=== PATIENT | female | born 1970 | race Two or more races ===

== ENCOUNTER 2023-04-20 13:12 | Inpatient (IN) | payer OTHER ==
[~2023-04-20] VITALS: Ht 154.9 cm; Wt 80.7 kg
[2023-04-20] MEDS ORDERED: FAMOTIDINE (10MG/ML) 2ML VL IV ONE (13:30)
[2023-04-20] MEDS ORDERED: SODIUM CHLORIDE 0.9% 1,000 ML IV ONE (13:30)
[2023-04-20] MEDS ORDERED: METOCLOPRAMIDE HCL 5MG/ml INJ 2ml VIAL IV ONE (13:30)
[2023-04-20] MEDS ORDERED: MORPHINE SULFATE INJ 2 MG/ml SYRG IV ONE (13:30)
[2023-04-20 14:07] LABS: Basophils # (auto) 0 10 ^3/uL (0-0.2); Basophils % (auto) 0.3 % (0.0-2.0); Eosinophils # (auto) 0 10 ^3/uL (0-0.8); Eosinophils % (auto) 0.7 % (0.0-7.0); Hemoglobin 12.8 g/dL (12.2-16.2); Lymphocytes # (auto) 2.3 10 ^3/uL (0.4-5.4); Lymphocytes % (auto) 31.7 % (10.0-50.0); Mean Corpuscular Hemoglobin 27.8 pg (28.0-32.0); Mean Corpuscular Hgb Conc. 32.9 g/dL (32.0-36.0); Mean Corpuscular Volume 84.6 fL (80.0-100.0); Monocytes # (auto) 0.4 10 ^3/uL (0-1.3); Monocytes % (auto) 6.2 % (0.0-12.0); Neutrophils # (auto) 4.3 10 ^3/uL (1.6-8.6); Neutrophils % (auto) 61.1 % (37.0-80.0); Nucleated Red Blood Cells % 0.1 %; Red Blood Cells 4.61 10^6/uL (4.0-5.20); Red Cell Distribution Width 13.6 % (11.8-14.3); White Blood Cell 7.1 10^3/uL (4.4-10.8)
[2023-04-20 14:23] LABS: INR 1.01 (0.9-1.15); Partial Thromboplastin Time 29.3 SEC (24.5-34.5)
[2023-04-20 14:27] LABS: Albumin 3.7 g/dL (3.4-5.0); BUN/Creatinine Ratio 13.4 (10.0-20.0); Calcium 8.8 mg/dL (8.5-10.1); Magnesium 1.9 mg/dL (1.6-2.6); Potassium 4.2 mmol/L (3.5-5.1)
[2023-04-20 14:30] LABS: Bilirubin, Total 0.6 mg/dL (0.2-1.0); Total Protein 6.8 g/dL (6.4-8.2)
[2023-04-20] MEDS ORDERED: InsuLIN REG 1unit/0.01ml Soln (100units/ml) SC ONE (15:00)
[2023-04-20 15:55] VITALS: PULSE 59; RESP 16; O2SAT 92
[2023-04-20 15:55] LABS: Urine Bacteria NONE SEEN /hpf (None Seen); Urine Blood Negative /uL (Negative); Urine Specific Gravity 1.037 (1.001-1.035); Urine WBC <1 /hpf (0 - 5)
[2023-04-20 16:09] LABS: Alcohol, Urine < 3.0 mg/dL (0-10); Amphetamine Screen, Urine NEGATIVE (NEGATIVE); Barbiturate Scree,Urine NEGATIVE (NEGATIVE); Benzodiazephine Screen, Urine NEGATIVE (NEGATIVE); Cannabinoid Screen, Urine NEGATIVE (NEGATIVE); Cocaine Screen, Urine NEGATIVE (NEGATIVE); Opiate Scree,Urine NEGATIVE (NEGATIVE); Phencyclidine Screen, Urine NEGATIVE (NEGATIVE)
[2023-04-20] MEDS ORDERED: DOCUSATE SOD 100 MG CAP PO PRN (18:00)
[2023-04-20] MEDS ORDERED: ONDANSETRON HCL 4 MG/2 ML VIAL IV PRN (18:00)
[2023-04-20] MEDS ORDERED: DEXTROSE (50%) 50ML SYRG IV PRN (18:00)
[2023-04-20] MEDS: SODIUM CHLORIDE 0.9% 1,000 ML IV SCH (18:29)
[2023-04-20 21:05] VITALS: PULSE 65; RESP 9; O2SAT 96
[2023-04-20] MEDS: ACCU-CHEK COMFORT CURVE STRIP VI SCH (22:00)
[2023-04-20 22:08] VITALS: BP 138/80; PULSE 59; RESP 16; TEMP 97.7; O2SAT 99
[2023-04-20] MEDS: SUCRALFATE 1 GM TAB PO SCH (22:56)
[2023-04-20] MEDS: MORPHINE SULFATE INJ 2 MG/ml SYRG IV PRN (22:57)
[2023-04-20] MEDS: InsuLIN REG 1unit/0.01ml Soln (100units/ml) SC SCH (23:11)
[2023-04-20 23:35] VITALS: BP 138/80; PULSE 60; RESP 18; TEMP 97.7; O2SAT 99
[2023-04-21] VITALS (7 sets, daily range): BP systolic 102–131; BP diastolic 40–88; PULSE 58–81; RESP 15–18; TEMP 97.1–98.3; O2SAT 93–98
[2023-04-21] MEDS ORDERED: LOSA50TA46 PO (01:38)
[2023-04-21] MEDS ORDERED: ATO40T PO (01:38)
[2023-04-21] MEDS ORDERED: BUSP5TAB51 PO (01:38)
[2023-04-21] MEDS ORDERED: CETI5TAB6 PO (01:38)
[2023-04-21] MEDS ORDERED: OMEP20TA PO (01:38)
[2023-04-21] MEDS ORDERED: ESCI20TA PO (01:38)
[2023-04-21] MEDS ORDERED: METO25TA5 PO (01:38)
[2023-04-21] MEDS: SODIUM CHLORIDE 0.9% 1,000 ML IV SCH ×3 (02:20→21:47)
[2023-04-21] MEDS: SUCRALFATE 1 GM TAB PO SCH ×4 (06:21→21:46)
[2023-04-21] MEDS: ACCU-CHEK COMFORT CURVE STRIP VI SCH ×4 (06:22→22:03)
[2023-04-21] MEDS: InsuLIN REG 1unit/0.01ml Soln (100units/ml) SC SCH ×4 (06:34→22:01)
[2023-04-21 06:49] LABS: Basophils # (auto) 0 10 ^3/uL (0-0.2); Basophils % (auto) 0.3 % (0.0-2.0); Eosinophils # (auto) 0.2 10 ^3/uL (0-0.8); Eosinophils % (auto) 2.3 % (0.0-7.0); Hematocrit 37.5 % (36.0-46.0); Hemoglobin 12.4 g/dL (12.2-16.2); Lymphocytes # (auto) 2.8 10 ^3/uL (0.4-5.4); Lymphocytes % (auto) 39.8 % (10.0-50.0); Mean Corpuscular Hemoglobin 28.3 pg (28.0-32.0); Mean Corpuscular Hgb Conc. 33.1 g/dL (32.0-36.0); Mean Corpuscular Volume 85.5 fL (80.0-100.0); Monocytes # (auto) 0.5 10 ^3/uL (0-1.3); Monocytes % (auto) 7.7 % (0.0-12.0); Neutrophils # (auto) 3.5 10 ^3/uL (1.6-8.6); Neutrophils % (auto) 49.9 % (37.0-80.0); Nucleated Red Blood Cells % 0.1 %; Red Blood Cells 4.39 10^6/uL (4.0-5.20)
[2023-04-21] MEDS: HYDROcodone-ACET 5/325MG TAB PO PRN (06:49)
[2023-04-21 07:21] LABS: Potassium 3.5 mmol/L (3.5-5.1)
[2023-04-21 07:27] LABS: BUN/Creatinine Ratio 11.3 (10.0-20.0); Bilirubin, Total 0.4 mg/dL (0.2-1.0); Calcium 8.2 mg/dL (8.5-10.1); Total Protein 6.3 g/dL (6.4-8.2)
[2023-04-21] MEDS ORDERED: PNEUMOCOCCAL VACC POLYS 25 MCG/0.5 ML VIAL IM ONE (08:00)
[2023-04-21] MEDS ORDERED: PANTOPRAZOLE 40 MG/10 ML VIAL INJ IV SCH (10:00)
[2023-04-21] MEDS ORDERED: LIDOCAINE VISCOUS 2% 15ML UD ONE (17:55)
[2023-04-21] MEDS ORDERED: MIDAZOLAM HCL 2MG/2ML 2ml VIAL (1mg/ml) ONE (17:55)
[2023-04-21] MEDS ORDERED: fentaNYL CITRATE 100 MCG/2 ML VL ONE (17:56)
[2023-04-21] MEDS: diphenhdrAMINE HCL 50 MG/1 ML VL ONE ×2 (18:17→18:19)
[2023-04-21] MEDS: busPIRone HCL 10 MG TAB PO SCH (21:46)
[2023-04-21] MEDS: ATORVASTATIN 20 MG TAB PO SCH (21:46)
[2023-04-21] MEDS: PANTOPRAZOLE 40 MG/10 ML VIAL INJ IV SCH (21:47)
[2023-04-22] MEDS: SODIUM CHLORIDE 0.9% 1,000 ML IV SCH ×3 (03:20→20:00)
[2023-04-22 05:00] VITALS: BP 135/81; PULSE 61; RESP 18; TEMP 97.9; O2SAT 96
[2023-04-22] MEDS: SUCRALFATE 1 GM TAB PO SCH ×4 (06:17→21:35)
[2023-04-22] MEDS: InsuLIN REG 1unit/0.01ml Soln (100units/ml) SC SCH ×4 (06:39→21:56)
[2023-04-22] MEDS: ACCU-CHEK COMFORT CURVE STRIP VI SCH ×4 (06:40→21:59)
[2023-04-22 08:00] VITALS: BP 130/89; PULSE 79; RESP 16; TEMP 98.1; O2SAT 98
[2023-04-22] MEDS ORDERED: LACTULOSE 20Gm/30ML SOLN PO ONE (08:45)
[2023-04-22] MEDS: PANTOPRAZOLE 40 MG/10 ML VIAL INJ IV SCH ×2 (09:25→21:35)
[2023-04-22] MEDS: HYDROcodone-ACET 5/325MG TAB PO PRN ×2 (09:25→17:27)
[2023-04-22] MEDS: CETIRIZINE 5 MG PO SCH (10:00)
[2023-04-22 12:00] VITALS: BP 135/60; PULSE 68; RESP 18; TEMP 97.6; O2SAT 98
[2023-04-22 16:00] VITALS: BP 119/61; PULSE 66; RESP 16; TEMP 98.4; O2SAT 97
[2023-04-22] MEDS: ATORVASTATIN 20 MG TAB PO SCH (21:35)
[2023-04-22] MEDS: busPIRone HCL 10 MG TAB PO SCH (21:36)
[2023-04-22 22:00] VITALS: BP 144/84; PULSE 55; RESP 18; TEMP 98.3; O2SAT 100
[2023-04-23] MEDS: HYDROcodone-ACET 5/325MG TAB PO PRN ×3 (03:30→21:02)
[2023-04-23] MEDS: MORPHINE SULFATE INJ 2 MG/ml SYRG IV PRN ×2 (04:32→09:45)
[2023-04-23] MEDS: SODIUM CHLORIDE 0.9% 1,000 ML IV SCH ×3 (04:39→21:00)
[2023-04-23 05:00] VITALS: BP 137/97; PULSE 90; RESP 19; TEMP 97.9; O2SAT 100
[2023-04-23] MEDS: SUCRALFATE 1 GM TAB PO SCH ×4 (06:29→21:51)
[2023-04-23] MEDS: ACCU-CHEK COMFORT CURVE STRIP VI SCH ×4 (06:37→22:00)
[2023-04-23] MEDS: InsuLIN REG 1unit/0.01ml Soln (100units/ml) SC SCH ×4 (06:37→22:28)
[2023-04-23 09:00] VITALS: BP 131/77; PULSE 59; RESP 19; TEMP 98.1; O2SAT 99
[2023-04-23] MEDS: CETIRIZINE 5 MG PO SCH (09:44)
[2023-04-23] MEDS: PANTOPRAZOLE 40 MG/10 ML VIAL INJ IV SCH ×2 (09:44→21:51)
[2023-04-23] MEDS ORDERED: diphenhdrAMINE HCL 25 MG CAP PO ONE (11:15)
[2023-04-23 13:00] VITALS: BP 152/88; PULSE 56; RESP 20; TEMP 98.9; O2SAT 99
[2023-04-23] MEDS ORDERED: LOSARTAN POTASSIUM 50 MG TAB PO ONE (13:30)
[2023-04-23] MEDS ORDERED: FAMO-12 PO (15:46)
[2023-04-23] MEDS ORDERED: BUSP5TAB51 PO (15:46)
[2023-04-23] MEDS ORDERED: OMEP20TA PO (15:46)
[2023-04-23] MEDS ORDERED: HYDRX10T PO (15:46)
[2023-04-23] MEDS ORDERED: TRAZ-184 PO (15:46)
[2023-04-23 17:00] VITALS: BP 113/59; PULSE 62; RESP 16; TEMP 97.5; O2SAT 96
[2023-04-23] MEDS: ATORVASTATIN 20 MG TAB PO SCH (21:51)
[2023-04-23] MEDS: busPIRone HCL 10 MG TAB PO SCH (21:51)
[2023-04-23] MEDS: METOPROLOL TARTRATE 25 MG TAB PO SCH (21:52)
[2023-04-23 22:00] VITALS: BP 158/78; PULSE 55; RESP 20; TEMP 98.3; O2SAT 99
[2023-04-23 23:20] VITALS: BP 132/78
[2023-04-24] MEDS: SODIUM CHLORIDE 0.9% 1,000 ML IV SCH ×3 (05:20→21:57)
[2023-04-24 06:13] LABS: Potassium 4.1 mmol/L (3.5-5.1)
[2023-04-24 06:21] LABS: Albumin 3.2 g/dL (3.4-5.0); BUN/Creatinine Ratio 4.8 (10.0-20.0); Bilirubin, Total 2.1 mg/dL (0.2-1.0); Calcium 8.9 mg/dL (8.5-10.1); Total Protein 6.7 g/dL (6.4-8.2)
[2023-04-24] MEDS: InsuLIN REG 1unit/0.01ml Soln (100units/ml) SC SCH ×4 (06:26→22:07)
[2023-04-24] MEDS: SUCRALFATE 1 GM TAB PO SCH ×4 (06:27→21:54)
[2023-04-24] MEDS: ACCU-CHEK COMFORT CURVE STRIP VI SCH ×4 (06:27→22:01)
[2023-04-24 06:33] VITALS: BP 137/71; PULSE 55; RESP 18; TEMP 98.1; O2SAT 98
[2023-04-24 08:00] VITALS: BP 143/86; PULSE 56; RESP 16; TEMP 97.9; O2SAT 98
[2023-04-24] MEDS: CETIRIZINE 5 MG PO SCH (10:00)
[2023-04-24] MEDS: METOPROLOL TARTRATE 25 MG TAB PO SCH ×2 (10:00→21:57)
[2023-04-24] MEDS: LOSARTAN POTASSIUM 50 MG TAB PO SCH (11:16)
[2023-04-24] MEDS: PANTOPRAZOLE 40 MG TAB PO SCH ×2 (11:17→21:54)
[2023-04-24 12:00] VITALS: BP 141/74; PULSE 59; RESP 16; TEMP 98; O2SAT 98
[2023-04-24] MEDS: HYDROcodone-ACET 5/325MG TAB PO PRN ×2 (12:58→21:54)
[2023-04-24] MEDS: LORazepam 0.5 MG TAB PO PRN ×2 (14:45→23:15)
[2023-04-24 16:00] VITALS: BP 159/85; PULSE 59; RESP 18; TEMP 98.7; O2SAT 99
[2023-04-24 20:00] VITALS: PULSE 57; RESP 18; O2SAT 96
[2023-04-24] MEDS: busPIRone HCL 10 MG TAB PO SCH (21:54)
[2023-04-24] MEDS: ATORVASTATIN 20 MG TAB PO SCH (21:54)
[2023-04-24 21:59] VITALS: BP 132/89; PULSE 57; RESP 18; TEMP 97.8; O2SAT 96
[2023-04-25 05:00] VITALS: BP 131/80; PULSE 80; RESP 20; TEMP 97.7; O2SAT 99
[2023-04-25] MEDS: ACCU-CHEK COMFORT CURVE STRIP VI SCH ×2 (06:03→11:25)
[2023-04-25] MEDS: SUCRALFATE 1 GM TAB PO SCH ×2 (06:03→11:13)
[2023-04-25] MEDS: InsuLIN REG 1unit/0.01ml Soln (100units/ml) SC SCH ×2 (06:04→11:28)
[2023-04-25] MEDS: SODIUM CHLORIDE 0.9% 1,000 ML IV SCH (06:09)
[2023-04-25] MEDS: HYDROcodone-ACET 5/325MG TAB PO PRN (06:14)
[2023-04-25 08:00] VITALS: PULSE 68; RESP 18
[2023-04-25] MEDS ORDERED: SUCR1TAB22 PO (08:20)
[2023-04-25] MEDS ORDERED: PANT40T PO (08:20)
[2023-04-25] MEDS ORDERED: METF-372 PO (08:20)
[2023-04-25 09:27] VITALS: BP 149/94; PULSE 65; RESP 16; TEMP 98.3; O2SAT 98
[2023-04-25] MEDS: CETIRIZINE 5 MG PO SCH (10:00)
[2023-04-25] MEDS: METOPROLOL TARTRATE 25 MG TAB PO SCH (10:34)
[2023-04-25] MEDS: LOSARTAN POTASSIUM 50 MG TAB PO SCH (10:34)
[2023-04-25] MEDS: PANTOPRAZOLE 40 MG TAB PO SCH (10:34)
[2023-04-25 12:56] VITALS: BP 149/94; PULSE 76; RESP 18; TEMP 36.8; O2SAT 98
[2023-04-25 13:08] VITALS: BP 120/71; PULSE 68; RESP 15; TEMP 97.9; O2SAT 98
== END 2023-04-25 14:00 | disposition home or self-care (01) | DRG 241 ==
LOC: ER 13:12 → EDBD 13:12 → OVERFLOW 17:57 → CENTRAL 22:08
PROVIDERS: ADMIT Family Medicine; ATTEND Family Medicine
PROC: 0DB68ZX Excision of Stomach, Via Natural or Artificial Opening Endoscopic, Diagnostic (ICD-10-PCS; 2023-04-21)
PROC: 0DB98ZX Excision of Duodenum, Via Natural or Artificial Opening Endoscopic, Diagnostic (ICD-10-PCS; principal; 2023-04-21 18:11)
DX: K29.00 Acute gastritis without bleeding (principal); E11.43 Type 2 diabetes mellitus with diabetic autonomic (poly)neuropathy; E87.1 Hypo-osmolality and hyponatremia; K31.84 Gastroparesis; S09.90XA Unspecified injury of head, initial encounter; E86.0 Dehydration; F32.9 Major depressive disorder, single episode, unspecified; W18.39XA Other fall on same level, initial encounter; F41.9 Anxiety disorder, unspecified; Z90.710 Acquired absence of both cervix and uterus; Z82.3 Family history of stroke; Z82.49 Family history of ischemic heart disease and other diseases of the circulatory system; Y93.89 Activity, other specified; Y92.89 Other specified places as the place of occurrence of the external cause; Y99.8 Other external cause status; Z23 Encounter for immunization; R10.13 Epigastric pain
CPT/HCPCS: 36415; 43239; 70450; 72125; 74176; 76705; 78226; 80053; 80307; 81001; 82962; 83036; 83605; 83690; 83735; 84484; 85025; 85610; 85730; 86677; 87040; 93005; 96361; 96372; 96374; 96375; C9113; G0378; J1815; J2250; J3490

== ENCOUNTER → 2024-01-24 | Outpatient (CLI) | payer MEDICAID ==
[~2024-01-24] MED LIST: ATOR-507 PO; BUSP5TAB51 PO; CETI5TAB6 PO; ESCI20TA PO; FAMO-12 PO; HYDRX10T PO; LOSA-534 PO; METF-372 PO; METO25TA5 PO; OMEP20TA PO; PANT40T PO; SUCR1TAB31 PO; TRAZ-184 PO
== END | disposition home or self-care (01) ==
LOC: Rad HDHVI 08:08
PROVIDERS: ATTEND Internal Medicine Cardiovascular Disease
DX: I10 Essential (primary) hypertension (principal)
CPT/HCPCS: 93306

== ENCOUNTER 2024-03-01 08:16 | Day surgery (SDC) | payer MEDICAID ==
[2024-02-23 12:16] LABS: Basophils # (auto) 0 10 ^3/uL (0-0.2); Basophils % (auto) 0.4 % (0.0-2.0); Eosinophils # (auto) 0.3 10 ^3/uL (0-0.8); Eosinophils % (auto) 3.5 % (0.0-7.0); Hematocrit 38.3 % (36.0-46.0); Hemoglobin 12.5 g/dL (12.2-16.2); Lymphocytes # (auto) 3.9 10 ^3/uL (0.4-5.4); Lymphocytes % (auto) 50.7 % (10.0-50.0); Mean Corpuscular Hgb Conc. 32.6 g/dL (32.0-36.0); Mean Corpuscular Volume 86.1 fL (80.0-100.0); Monocytes # (auto) 0.5 10 ^3/uL (0-1.3); Monocytes % (auto) 6.7 % (0.0-12.0); Neutrophils % (auto) 38.7 % (37.0-80.0); Red Blood Cells 4.45 10^6/uL (4.0-5.20); Red Cell Distribution Width 14.4 % (11.8-14.3); White Blood Cell 7.7 10^3/uL (4.4-10.8)
[2024-02-23 12:31] LABS: INR 0.93 (0.9-1.15); Partial Thromboplastin Time 27.1 SEC (24.5-34.5); Prothrombin Time 9.9 sec (9.3-11.8)
[2024-02-23 12:59] LABS: Alanine Aminotransferase 45 U/L (7-40); Albumin 4.4 g/dL (3.2-4.8); Alkaline Phosphatase 76 U/L (46-116); Anion Gap 6 (5-15); Aspartate Aminotransferase 35 U/L (13-40); BUN/Creatinine Ratio 9.5 (10.0-20.0); Bilirubin, Total 0.3 mg/dL (0.2-1.0); Blood Urea Nitrogen 7 mg/dL (9-23); Calcium 9.7 mg/dL (8.7-10.4); Carbon Dioxide 27 mmol/L (20-30); Chloride 108 mmol/L (98-107); Glucose 129 mg/dL (74-106); Potassium 4.3 mmol/L (3.5-5.1); Sodium 141 mmol/L (136-145); Total Protein 7.3 g/dL (5.7-8.2)
[~2024-03-01] VITALS: Ht 154.9 cm; Wt 77.1 kg
[~2024-03-01 08:16] MED LIST changes: +ARIP1TAB59 PO; -ATOR-507 PO; -CETI5TAB6 PO; -FAMO-12 PO; +GABA-1250 PO; +LINA145C OR; -LOSA-534 PO; -METO25TA5 PO; -OMEP20TA PO; -PANT40T PO; +PRA1C PO; +SEMA2INJ3 SC; -SUCR1TAB31 PO
[2024-03-01] MEDS ORDERED: SODIUM CHLORIDE LOCK 10 ML ONE (08:50)
[2024-03-01 09:11] VITALS: PULSE 90; RESP 18; O2SAT 98
[2024-03-01] MEDS: diphenhdrAMINE HCL 50 MG/1 ML VL ONE (09:15)
[2024-03-01] MEDS: fentaNYL CITRATE 100 MCG/2 ML VL ONE (09:15)
[2024-03-01] MEDS: MIDAZOLAM HCL 5 MG/ML-1ML VIAL ONE (09:15)
[2024-03-01 09:39] VITALS: PULSE 77; RESP 12; O2SAT 100
[2024-03-01 10:15] VITALS: BP 141/82; PULSE 69; RESP 16; O2SAT 97
== END 2024-03-01 10:30 | disposition home or self-care (01) ==
LOC: GI 08:16
PROVIDERS: ATTEND Internal Medicine Gastroenterology
DX: K59.00 Constipation, unspecified (principal); K62.6 Ulcer of anus and rectum; K57.30 Diverticulosis of large intestine without perforation or abscess without bleeding; K64.8 Other hemorrhoids; F32.A Depression, unspecified; K62.89 Other specified diseases of anus and rectum; I10 Essential (primary) hypertension; F41.9 Anxiety disorder, unspecified; Z98.41 Cataract extraction status, right eye; Z90.710 Acquired absence of both cervix and uterus; Z98.42 Cataract extraction status, left eye; Z79.899 Other long term (current) drug therapy; Z98.890 Other specified postprocedural states; Z82.49 Family history of ischemic heart disease and other diseases of the circulatory system
CPT/HCPCS: 36415; 45380; 80053; 85025; 85610; 85730; 88305; 88342; J1200; J2250; J3010; J7030; 82962; 99152

== ENCOUNTER → 2024-03-11 | Outpatient (CLI) | payer MEDICAID ==
[~2024-03-11] VITALS: Ht 154.9 cm; Wt 73.5 kg
== END | disposition home or self-care (01) ==
LOC: Rad HDHVI 13:08
PROVIDERS: ATTEND Internal Medicine Cardiovascular Disease
DX: R07.89 Other chest pain (principal); R06.02 Shortness of breath; I10 Essential (primary) hypertension; E78.2 Mixed hyperlipidemia; E11.65 Type 2 diabetes mellitus with hyperglycemia; Z82.49 Family history of ischemic heart disease and other diseases of the circulatory system
CPT/HCPCS: 78452; 93017; 96374; A9500

== ENCOUNTER 2024-05-28 13:56 | Emergency (ER) | payer MEDICAID ==
[~2024-05-28] VITALS: Ht 154.9 cm; Wt 77.0 kg
[~2024-05-28 13:56] MED LIST changes: -ARIP1TAB59 PO; +ARIP5TAB22 PO; -PRA1C PO; +PRAZ1CAP2 PO
[2024-05-28] MEDS ORDERED: CETI5TAB6 PO (15:44)
[2024-05-28] MEDS ORDERED: FLUT1SPR5 (15:44)
[2024-05-28] MEDS ORDERED: SODI1KIT2 (15:44)
[2024-05-28] MEDS ORDERED: OXYM-15 (15:44)
[2024-05-28] MEDS ORDERED: AUG875T PO (15:44)
[2024-05-28] MEDS ORDERED: ALBU108A5 IN (15:45)
[2024-05-28 16:20] VITALS: BP 118/79; PULSE 75; RESP 18; TEMP 98; O2SAT 97
== END 2024-05-28 15:45 | disposition home or self-care (01) ==
LOC: ER 13:56
DX: J32.9 Chronic sinusitis, unspecified (principal)

== ENCOUNTER 2025-01-01 10:08 | Emergency (ER) | payer MEDICAID ==
[~2025-01-01] VITALS: Ht 167.6 cm; Wt 78.0 kg
[~2025-01-01 10:08] MED LIST changes: +ALBU108A5 IN; +AUG875T PO; +CETI5TAB6 PO; +FLUT1SPR5; +OXYM-15; +SODI1KIT2
--- NOTE | 2025-01-01 10:15 | ED.PDOC ---
History of Present Illness HPI Comments 54F BIBA from a psychiatric facility which is not associated to the c/c of LLE numbness. Pt was meeting with her psychiatrist physician when she informed on of the nurses that she has numbness on her left extremity which was radiating up to the "vagina and my butt". EMS state the BS on scene was 104. PMHx of Bipolar, DM and HTN. Denies chills, fever, N/V/D, SOB, CP no other associated symptoms, modifiers, recent injuries or sick contacts at this time. Time Seen by MD: 10:13 Primary Care Provider: PURA Allergies: Coded Allergies: NO KNOWN ALLERGIES (Unverified , 04/20/23) Home Meds Active Scripts Albuterol Sulfate (Albuterol Sulfate Hfa) 108 Mcg/Act Aer, 108 MCG IN Q6HPRN PRN for 30 Days, #1 AER 0 Refills Prov:BRYNN LARRY NP 05/28/24 Oxymetazoline Hcl (AFRIN 12 HOUR) 0.05 % Spr, 1 SPRAY NA BID for 5 Days, #15 ML 0 Refills Prov:BRYNN LARRY NP 05/28/24 Sodium Chloride-Sodium Bicarbo (Neti Pot Kit Sinus Wash/C 2300-700 mg) 1 Kit Kit, 1 KIT NA UD for 30 Days, #1 KIT 0 Refills Prov:BRYNN LARRY NP 05/28/24 Cetirizine Hcl (Cetirizine Hcl) 5 Mg Tab, 10 MG PO DAILY for 30 Days, #60 TAB 0 Refills Prov:BRYNN LARRY NP 05/28/24 Fluticasone Propionate (Nasal) (Flonase Allergy Relief) 50 Mcg/Act Spr, 50 MCG NA DAILY for 30 Days, #1 KIT 0 Refills Prov:BRYNN LARRY NP 05/28/24 Amoxicillin & Pot Clavulanate (AUGMENTIN TABLET) 875 Mg Tb, 875 MG PO BID for 7 Days, #14 TAB 0 Refills Prov:BRYNN LARRY NP 05/28/24 Metformin Hydrochloride (Metformin Hcl) 1,000 Mg Tab, 1 TAB PO BID, #180 TAB 1 Refill Prov:TIFFANI LAWSON MD 04/25/23 Reported Medications Aripiprazole (Aripiprazole) 5 Mg Tab, 5 MG PO HS, TAB 02/28/24 Prazosin Hcl (Minipres) 1 Mg Cp, 1 MG PO HS, CAP 02/28/24 Linaclotide Base (LINZESS) 145 Mcg Cap, 145 MCG OR UD, CAP 02/28/24 Gabapentin (Gabapentin) 300 Mg Cap, 300 MG PO BID, CAP 02/28/24 Semaglutide (Ozempic) 2 Mg/3 Ml Inj, 0.25 MG SC, INJ 02/28/24 Hydroxyzine Hcl (Hydroxyzine Hcl) 10 Mg Tab, 10 MG PO QIDPRN PRN for ANXIETY for 30 Days, MG 04/23/23 Trazodone HCl (Trazodone Hydrocloride) 100 Mg Tab, 200 MG PO HS, TAB 04/23/23 Buspirone Hcl (Buspirone Hcl) 5 Mg Tab, 5 MG PO Q12HR for 30 Days, MG 04/23/23 Escitalopram Oxalate (Lexapro) 20 Mg Tab, 1 TAB PO DAILY, #90 TAB 3 Refills 04/21/23 Past Medical History Surgical History: Unknown DIRECTOR OF DIGITAL MARKETING History: Unknown Family History Family History: Reviewed,noncontributory to illness, Unknown Social History Smoker: Unknown Alcohol: Unknown Drugs: Unknown Lives In: Home Physical Exam General Appearance: Moderate Distress HEENT: Normal ENT Inspection, Pharynx Normal, TMs Normal Neck: Full Range of Motion, Non-Tender, Normal, Normal Inspection Respiratory: Chest Non-Tender, Lungs Clear, No Accessory Muscle Use, No Respiratory Distress, Normal Breath Sounds Cardiovascular: No Edema, No JVD, No Murmur, No Gallop, Normal Peripheral Pulses, Regular Rate/Rhythm Breast Exam: Deferred Gastrointestinal: No Organomegaly, Non Tender, No Pulsatile Mass, Normal Bowel Sounds, Soft Genitalia: Deferred Pelvic: Deferred Rectal: Deferred Extremities: No calf tenderness, Normal capillary refill, Normal inspection, Normal range of motion, Non-tender, No pedal edema Musculoskeletal : Apperance: Normal Neurologic: Alert, it help desk technician II-XII nml as Tested, No Motor Deficits, Normal Affect, Normal Mood, No Sensory Deficits Cerebellar Function: NOT DONE Reflexes: NOT DONE Skin: Dry, Normal Color, Warm Peripheral Pulses: 3+ Radial (R), 3+ Radial (L) Lymphatic: No Adenopathy Was a procedure done? Was a procedure done?: No Differential Dx Considerations may include: Anxiety Electrolyte imbalance X-Ray, Labs, Meds, VS Vital Signs Date Time Temp Pulse Resp B/P (MAP) Pulse Ox O2 Delivery O2 Flow Rate FiO2 01/01/25 14:15 97.2 83 16 107/63 (78) 93 97.2 01/01/25 10:38 80 18 95 Room Air* 0 21 01/01/25 10:38 97.7 80 20 121/67 (85) 95 97.7 01/01/25 10:16 98.1 81 18 132/76 (94) 99 98.1 Patient alert. Complaining of back pain. Vitals stable. Answering questions. Possible sciatica. Abdomen is soft nontender. Denies suicidal ideation. Was given [place]. Medically cleared. Psychiatric evaluation. Doing well. Lumbar spine x-ray does not show any acute process. Explained to the patient. Was told to follow up with her psychiatrist. Was told to follow up with her primary care physician. Was told to come back if there is any problem. [place] [id number] Ph: [phone] DIAGNOSTIC IMAGING Diagnostic Imaging Report : [id number] Signed PATIENT: JUDE ZULETA ACCT: [id number] UNIT: [id number] : 1970 LOC: ER ROOM / BED: / AGE / SEX: 54 / F ADM STATUS: REG ER SERVICE 1013 ORDERING PHYSICIAN: ELENO JOSE MD PROCEDURE(s): LUMB2 - LUMBAR SPINE 3 VIEW REASON: degen ORDER NUMBER(s): [id number], ACCESSION NUMBER(s): [id number] INDICATION: degen TECHNIQUE: 3 views of the lumbar spine were obtained. COMPARISON: None FINDINGS: There are no acute fractures or subluxations. IMPRESSION: No acute fracture or subluxation. ATED BY: MIO POTTER MD DICTATED DATE/TIME: 01/01/25 1039 SIGNED BY: MIO POTTER MD SIGNED DATE/TIME: 01/01/25 1039 CC: Time of 1ST Reevaluation: 11:37 Reevaluation 1ST: Improved Patient Education/Counseling: Diagnosis, Treatment, Prognosis, Need For Follow Up Family Education/Counseling: No Family Present Departure 1 Departure Time of Disposition: 11:38 Impression: Primary Impression: Degenerative disc disease Qualified Codes: M51.369 - Other intervertebral disc degeneration, lumbar region without mention of lumbar back pain or lower extremity pain Additional Impression: Bipolar disorder Qualified Codes: F31.9 - Bipolar disorder, unspecified Disposition: 01 HOME / SELF CARE / HOMELESS Condition: Good Critical Care Note Critical Care Time?: No Stability Stability form required: No Heart Score Heart Score: Heart Score Response (Comments) Value History N/A 0 EKG N/A 0 Age N/A 0 Risk Factors N/A 0 Troponin N/A 0 Total 0 I personally scribed for ELENO JOSE MD ([email or web address]) on 01/01/25 at 10:15. Electronically submitted by Dinesh Herzog ([employer]). I personally scribed for ELENO JOSE MD ([email or web address]) on 01/01/25 at 12:22. Electronically submitted by Dinesh Herzog ([email or web address]). ELENO JOSE MD Jan 01, 2025 10:15
[2025-01-01 10:38] VITALS: PULSE 80; RESP 18; O2SAT 95
--- NOTE | 2025-01-01 10:42 | DVH ---
INDICATION: degen TECHNIQUE: 3 views of the lumbar spine were obtained. COMPARISON: None FINDINGS: There are no acute fractures or subluxations. IMPRESSION: No acute fracture or subluxation.
[2025-01-01 14:15] VITALS: BP 107/63; PULSE 83; RESP 16; TEMP 97.2; O2SAT 93
== END 2025-01-01 15:01 | disposition home or self-care (01) ==
LOC: EDBD 10:08 → ER 10:20
DX: M51.369 Other intervertebral disc degeneration, lumbar region without mention of lumbar back pain or lower extremity pain (principal); F31.9 Bipolar disorder, unspecified; Z79.899 Other long term (current) drug therapy; Z79.84 Long term (current) use of oral hypoglycemic drugs
CPT/HCPCS: 72100

== ENCOUNTER 2025-06-21 12:50 | Inpatient (IN) | payer MEDICAID ==
[~2025-06-21] VITALS: Ht 154.9 cm; Wt 79.7 kg
[2025-06-21] MEDS: MORPHINE SULFATE 4 MG/ML SYR/VIAL IV ONE (13:27)
[2025-06-21] MEDS: ONDANSETRON HCL 4 MG/2 ML VIAL IV ONE (13:28)
--- NOTE | 2025-06-21 13:41 | ED.PDOC ---
GI ASSESSMENT HPI Comments This is a 55 year-old female who presents to the ED via wheelchair with a chief complaint of LLQ abdominal pain that radiates to the left flank and back as of X30 minutes ago. Patient reports a surgical Hx of tummy tuck and partial hysterectomy. Patient additionally reports a family history of kidney stones. Patient has no further complaints at this time and otherwise denies hematuria, dysuria, fever, chills, weakness, chest pain, SOB, or N/V/D. Chief Complaint: Flank Pain Time Seen by MD: 12:54 Primary Care Provider: PURA Reviewed Notes: Nurses Notes, Medications, Allergies Allergies: Coded Allergies: NO KNOWN ALLERGIES (Unverified , 04/20/23) Home Meds Active Scripts Albuterol Sulfate (Albuterol Sulfate Hfa) 108 Mcg/Act Aer, 108 MCG IN Q6HPRN PRN for 30 Days, #1 AER 0 Refills Prov:BRYNN LARRY NP 05/28/24 Oxymetazoline Hcl (AFRIN 12 HOUR) 0.05 % Spr, 1 SPRAY NA BID for 5 Days, #15 ML 0 Refills Prov:BRYNN LARRY NP 05/28/24 Sodium Chloride-Sodium Bicarbo (Neti Pot Kit Sinus Wash/C 2300-700 mg) 1 Kit Kit, 1 KIT NA UD for 30 Days, #1 KIT 0 Refills Prov:BRYNN LARRY NP 05/28/24 Cetirizine Hcl (Cetirizine Hcl) 5 Mg Tab, 10 MG PO DAILY for 30 Days, #60 TAB 0 Refills Prov:BRYNN LARRY NP 05/28/24 Fluticasone Propionate (Nasal) (Flonase Allergy Relief) 50 Mcg/Act Spr, 50 MCG NA DAILY for 30 Days, #1 KIT 0 Refills Prov:BRYNN LARRY NP 05/28/24 Amoxicillin & Pot Clavulanate (AUGMENTIN TABLET) 875 Mg Tb, 875 MG PO BID for 7 Days, #14 TAB 0 Refills Prov:BRYNN LARRY NP 05/28/24 Metformin Hydrochloride (Metformin Hcl) 1,000 Mg Tab, 1 TAB PO BID, #180 TAB 1 Refill Prov:TIFFANI LAWSON MD 04/25/23 Reported Medications Aripiprazole (Aripiprazole) 5 Mg Tab, 5 MG PO HS, TAB 02/28/24 Prazosin Hcl (Minipres) 1 Mg Cp, 1 MG PO HS, CAP 02/28/24 Linaclotide Base (LINZESS) 145 Mcg Cap, 145 MCG OR UD, CAP 02/28/24 Gabapentin (Gabapentin) 300 Mg Cap, 300 MG PO BID, CAP 02/28/24 Semaglutide (Ozempic) 2 Mg/3 Ml Inj, 0.25 MG SC, INJ 02/28/24 Hydroxyzine Hcl (Hydroxyzine Hcl) 10 Mg Tab, 10 MG PO QIDPRN PRN for ANXIETY for 30 Days, MG 04/23/23 Trazodone HCl (Trazodone Hydrocloride) 100 Mg Tab, 200 MG PO HS, TAB 04/23/23 Buspirone Hcl (Buspirone Hcl) 5 Mg Tab, 5 MG PO Q12HR for 30 Days, MG 04/23/23 Escitalopram Oxalate (Lexapro) 20 Mg Tab, 1 TAB PO DAILY, #90 TAB 3 Refills 04/21/23 Information Source: Patient Mode of Arrival: Wheelchair Timing: Minutes Duration: Since onset Prehospital treatment: None Severity: Moderate Pain Location: LLQ Associated sign and symptoms: Abdominal Pain, Other (Flank Pain / back pain ) Past Medical History PAST MEDICAL HISTORY: Denies Surgical History: Hysterectomy (Partial ) Surgical History (Other): Tummy Tuck RESTAURANT SUPERVISOR History: Unknown Family History Family History (Other): Kidney Stones Social History Smoker: Non-Smoker Alcohol: Denies ETOH Use Drugs: Denies Drug Use Lives In: Home Constitutional: denies: chills, diaphoresis, fatigue, fever, malaise, sweats, weakness, others EENTM: denies: blurred vision, double vision, ear bleeding, ear discharge, ear drainage, ear pain, ear ringing, eye pain, eye redness, hearing loss, mouth pain, mouth swelling, nasal discharge, nose bleeding, nose congestion, nose pain, photophobia, tearing, throat pain, throat swelling, voice changes, others Respiratory: denies: cough, hemoptysis, orthopnea, SOB at rest, shortness of breath, SOB with excertion, stridor, wheezing, others Cardiovascular: denies: chest pain, dizzy spells, diaphoresis, Dyspnea on exertion, edema, irregular heart beat, left arm pain, lightheadedness, palpitations, PND, syncope, others Gastrointestinal: reports: abdominal pain; denies: abdomen distended, blood streaked bowels, constipated, diarrhea, dysphagia, difficulty swallowing, hematemesis, melena, nausea, poor appetite, poor fluid intake, rectal bleeding, rectal pain, vomiting, others Genitourinary: reports: flank pain; denies: abnormal vagina bleeding, burning, dyspareunia, dysuria, frequency, hematuria, incontinence, pain, , vagina discharge, urgency, others Neurological: denies: dizziness, fainting, headache, left sided numbness, left sided weakness, numbness, paresthesia, pre-existing deficit, right sided numbness, right sided weakness, seizure, speech problems, tingling, tremors, weakness, others Musculoskeletal: reports: back pain; denies: gout, joint pain, joint swelling, muscle pain, muscle stiffness, neck pain, others Integumetry: denies: bruises, change in color, change in hair/nails, dryness, laceration, lesions, lumps, rash, wounds, others Allergic/Immunocompromised: denies: Difficulty Healing, Frequent Infections, Hives, Itching, others Hematologic/Lymphatic: denies: anemia, blood clots, easy bleeding, easy bruising, swollen glands, others Endocrine: denies: excessive hunger, excessive sweating, excessive thirst, excessive urination, flushing, intolerance to cold, intolerance to heat, unexplained weight gain, unexplained weight loss, others Psychiatric: denies: anxiety, bipolar disorder, depression, hopeless, panic d isorder, schizophrenia, sleepless, suicidal, others All Other Systems: Reviewed and Negative Physical Exam General Appearance: Moderate Distress HEENT: Normal ENT Inspection, Pharynx Normal, TMs Normal Neck: Full Range of Motion, Non-Tender, Normal, Normal Inspection Respiratory: Chest Non-Tender, Lungs Clear, No Accessory Muscle Use, No Respiratory Distress, Normal Breath Sounds Cardiovascular: No Edema, No JVD, No Murmur, No Gallop, Normal Peripheral Pulses, Regular Rate/Rhythm Breast Exam: Deferred Gastrointestinal: Diffuse Genitalia: Deferred Pelvic: Deferred Rectal: Deferred Extremities: No calf tenderness, Normal capillary refill, Normal inspection, Normal range of motion, Non-tender, No pedal edema Musculoskeletal : Apperance: Normal Neurologic: Alert, flame planer II-XII nml as Tested, No Motor Deficits, Normal Affect, Normal Mood, No Sensory Deficits Cerebellar Function: NOT DONE Reflexes: NOT DONE Skin: Dry, Normal Color, Warm Peripheral Pulses: 3+ Radial (R), 3+ Radial (L) Lymphatic: No Adenopathy Was a procedure done? Was a procedure done?: No GI differential Dx Differential Diagnosis: Constipation, Diverticular disease, Esophagitis, Gastr itis/PUD, Gastroenteritis, Dehydration, Food Poisoning, Bacterial, Parasitic, Viral, Kidney Stone X-Ray, Labs, Meds, VS Vital Signs Date Time Temp Pulse Resp B/P (MAP) Pulse Ox O2 Delivery O2 Flow Rate FiO2 06/21/25 14:16 82 22 183/100 06/21/25 13:43 98.4 79 22 183/100 (127) 98 98.4 06/21/25 13:27 79 27 183/100 06/21/25 12:52 98.4 77 22 158/81 97 98.4 Lab Test 06/21/25 13:45 Range/Units White Blood Count 8.9 4.4-10.8 10^3/uL Red Blood Count 4.71 4.0-5.20 10^6/uL Hemoglobin 13.2 12.2-16.2 g/dL Hematocrit 39.3 36.0-46.0 % Mean Corpuscular Volume 83.5 80.0-100.0 fL Mean Corpuscular Hemoglobin 28.0 28.0-32.0 pg Mean Corpuscular Hemoglobin Concent 33.5 32.0-36.0 g/dL Red Cell Distribution Width 14.0 11.8-14.3 % Platelet Count 388 140-450 10^3/uL Mean Platelet Volume 8.1 6.9-10.8 fL Neutrophils (%) (Auto) 44.1 37.0-80.0 % Lymphocytes (%) (Auto) 49.0 10.0-50.0 % Monocytes (%) (Auto) 5.6 0.0-12.0 % Eosinophils (%) (Auto) 0.9 0.0-7.0 % Basophils (%) (Auto) 0.4 0.0-2.0 % Neutrophils # (Auto) 3.9 1.6-8.6 10 ^3/uL Lymphocytes # (Auto) 4.3 0.4-5.4 10 ^3/uL Monocytes # (Auto) 0.5 0-1.3 10 ^3/uL Eosinophils # (Auto) 0.1 0-0.8 10 ^3/uL Basophils # (Auto) 0 0-0.2 10 ^3/uL Nucleated Red Blood Cells 0.0 % Sodium Level 139 136-145 mmol/L Potassium Level 4.0 3.5-5.1 mmol/L Chloride Level 105 98-107 mmol/L Carbon Dioxide Level 21 20-31 mmol/L Anion Gap 13 5-15 Blood Urea Nitrogen 11 9-23 mg/dL Creatinine 1.02 0.550-1.02 mg/dL Glomerular Filtration Rate Calc 65 >90 mL/min BUN/Creatinine Ratio 10.8 10.0-20.0 Serum Glucose 147 H 74-106 mg/dL Lactic Acid Level 2.7 *H 0.4-2.0 mmol/L Calcium Level 9.9 8.7-10.4 mg/dL Current Medications Medications (Trade) Dose Ordered Sig/Sofía Route Start Time Stop Time Status Last Admin Ondansetron HCl (Zofran) 4 mg ONCE ONCE IV 06/21/25 13:30 06/21/25 13:31 DC 06/21/25 13:28 Morphine Sulfate 4 mg ONCE ONCE IV 06/21/25 13:30 06/21/25 13:31 DC 06/21/25 13:27 Sodium Chloride 1,000 ml @ 1,000 mls/hr Q1H ONCE IV 06/21/25 13:30 06/21/25 14:29 DC 06/21/25 13:43 Hydromorphone HCl (Dilaudid Injection) 1 mg ONCE ONCE IV 06/21/25 14:15 06/21/25 14:16 DC 06/21/25 14:16 [place] [address] Ph: [phone] DIAGNOSTIC IMAGING Diagnostic Imaging Report : [id number] Signed PATIENT: JUDE ZULETA ACCT: [id number] UNIT: [id number] : 1970 LOC: ER ROOM / BED: / AGE / SEX: 55 / F ADM STATUS: REG ER SERVICE 1317 ORDERING PHYSICIAN: ELENO JOSE MD PROCEDURE(s): ABPL - CT AB PEL WO CON-NO ORAL OR IV REASON: ABD PAIN ORDER NUMBER(s): [id number], ACCESSION NUMBER(s): [id number] COMPUTERIZED TOMOGRAPHY ABDOMEN AND PELVIS WITHOUT CONTRAST REASON FOR EXAM: ABD PAIN COMPARISON: CT CT AB PEL WO CON-NO ORAL OR IV on DOS: 04/20/23 TECHNIQUE: Spiral scans were acquired from the diaphragm to the symphysis pubis without intravenous contrast administration. 2-D coronal and sagittal reformatted images were provided. Radiation optimization: All CT scans at this facility use at least one of these dose optimization techniques: Automated exposure control mA and/or kV adjustment per patient size (includes targeted exams where dose is matched to clinical indication) or iterative reconstruction. RADIATION DOSE: CTDI: 11 mGy DLP: 516 mGy-cm FINDINGS: The visualized lung bases are clear. There is no pleural effusion. There is no pericardial effusion. There is partial visualization of a right breast prosthesis. The spleen is not enlarged. The liver is borderline enlarged. Evaluation of the abdominal organs is suboptimal in the absence of intravenous contrast. The liver is diffusely hypoattenuating. No calcified gallstone is identified. Unenhanced appearance of the pancreas is unremarkable. The adrenal glands are normal. The kidneys are similar in size. There is no hydronephrosis of either kidney. There is mild prominence of the left renal pelvis. There is a 2 mm calculus within the distal left ureter at the ureterovesical junction. The urinary bladder is grossly unremarkable. The uterus is absent. The ovaries are not definitely seen. There is no free fluid in the abdomen or pelvis. No pathologic lymphadenopathy is identified by size criteria. There are few phleboliths in the pelvis. There is mild scattered colonic diverticulosis without evidence of diverticulitis. The appendix is normal. There is no pathologic distention of the small bowel. There is no abdominal aortic aneurysm. No acute osseous abnormality is identified. IMPRESSION: There is a 2 mm calculus within the distal left ureter at the ureterovesical junction. There is mild prominence of the left renal pelvis without princess hydronephrosis. Normal appendix [place] [address] Ph: [phone] DIAGNOSTIC IMAGING Diagnostic Imaging Report : [id number] Signed PATIENT: JUDE ZULETA ACCT: [id number] UNIT: [id number] : 1970 LOC: ER ROOM / BED: / AGE / SEX: 55 / F ADM STATUS: REG ER SERVICE 1317 ORDERING PHYSICIAN: ELENO JOSE MD PROCEDURE(s): CXRP - CHEST PORTABLE REASON: ABD PAIN ORDER NUMBER(s): [id number], ACCESSION NUMBER(s): [id number] EXAM: XY CHEST PORTABLE HISTORY: ABD PAIN TECHNIQUE: 1 view of the chest COMPARISON: None FINDINGS/IMPRESSION: LUNGS: No pleural effusion, consolidation, or pneumothorax MEDIASTINUM: Unremarkable BONES: No acute osseous abnormality OTHER: None Patient alert. Complaining of abdominal pain. Vitals stable. Blood pressure elevated. Possibly from pain. Establish intravenous access. Was given fluids. Was given Zofran. Was given morphine. Was given Dilaudid. She does have a history of gastric tummy tuck. Explained to the patient. Continue monitoring. Images Reviewed?: Images reviewed and evaluated by me Time of 1ST Reevaluation: 14:22 Reevaluation 1ST: Unchanged Patient Education/Counseling: Diagnosis, Treatment Family Education/Counseling: No Family Present Medical Screening: No EMC Exist At This Time SEPSIS Sepsis Screen Date sepsis recognized/suspect: Jun 21, 2025 Time Sepsis recognized/suspect: 1254 Recent Procedure: No On Antibiotic Therapy: No Respiratory Rate >20: Yes Heart Rate >90: No Temp<36 C (96.8 F) or >38.3 C: No SBP <90 or MAP <65 mmHG: No New Acute Mental Status Change: No Is the patient on CPAP, BIPAP,: No Physician Orders Urinalysis (06/21/25 13:17) Ct Ab Pel Wo Con-No Oral Or Iv (06/21/25 13:17) Chest Portable (06/21/25 13:17) Sodium Chloride 0.9% (06/21/25 13:30) Vital Signs Date Time Temp Pulse Resp B/P (MAP) Pulse Ox O2 Delivery O2 Flow Rate FiO2 06/21/25 14:16 82 22 183/100 06/21/25 13:43 98.4 79 22 183/100 (127) 98 98.4 06/21/25 13:27 79 27 183/100 06/21/25 12:52 98.4 77 22 158/81 97 98.4 Laboratory Tests Test 06/21/25 13:45 Lactic Acid Level 2.7 mmol/L (0.4-2.0) *H White Blood Count 8.9 10^3/uL (4.4-10.8) Medications Medications Dose Ordered Sig/Sofía Route Start Time Stop Time Status Last Admin Dose Admin Hydromorphone HCl 1 mg ONCE ONCE IV 06/21/25 14:15 06/21/25 14:16 DC 06/21/25 14:16 Morphine Sulfate 4 mg ONCE ONCE IV 06/21/25 13:30 06/21/25 13:31 DC 06/21/25 13:27 Ondansetron HCl 4 mg ONCE ONCE IV 06/21/25 13:30 06/21/25 13:31 DC 06/21/25 13:28 Sodium Chloride 1,000 ml @ 1,000 mls/hr Q1H ONCE IV 06/21/25 13:30 06/21/25 14:29 DC 06/21/25 13:43 Departure 1 Departure Time of Disposition: 13:50 Impression: Primary Impression: Acute abdominal pain Disposition: ADMITTED INPATIENT Admit to: Med Surg Condition: Guarded Critical Care Note Critical Care Time?: No Stability Stability form required: No Heart Score Heart Score: Heart Score Response (Comments) Value History N/A 0 EKG N/A 0 Age N/A 0 Risk Factors N/A 0 Troponin N/A 0 Total 0 I personally scribed for ELENO JOSE MD ([email or web address]) on 06/21/25 at 13:41. Electronically submitted by Alexsandra Olivas ([employer]). I personally scribed for ELENO JOSE MD ([email or web address]) on 06/21/25 at 14:33. Electronically submitted by Alexsandra Olivas ([employer]). I personally scribed for ELENO JOSE MD ([email or web address]) on 06/21/25 at 14:34. Electronically submitted by Alexsandra Olivas ([employer]). ELENO JOSE MD Jun 21, 2025 13:41
[2025-06-21] MEDS: SODIUM CHLORIDE 0.9% 1,000 ML IV ONE ×2 (13:43→15:30)
[2025-06-21 13:55] LABS: Hematocrit 39.3 % (36.0-46.0); Hemoglobin 13.2 g/dL (12.2-16.2); Mean Corpuscular Hemoglobin 28.0 pg (28.0-32.0); Mean Corpuscular Volume 83.5 fL (80.0-100.0); Nucleated Red Blood Cells % 0.0 %
--- NOTE | 2025-06-21 13:59 | DVH ---
EXAM: XY CHEST PORTABLE HISTORY: ABD PAIN TECHNIQUE: 1 view of the chest COMPARISON: None FINDINGS/IMPRESSION: LUNGS: No pleural effusion, consolidation, or pneumothorax MEDIASTINUM: Unremarkable BONES: No acute osseous abnormality OTHER: None
[2025-06-21] MEDS ORDERED: HYDROmorphone HCL 2 MG/ML VL/or syr IM ONE (14:00)
[2025-06-21 14:05] LABS: Anion Gap 13 (5-15); Carbon Dioxide 21 mmol/L (20-31); Chloride 105 mmol/L (98-107); Potassium 4.0 mmol/L (3.5-5.1); Sodium 139 mmol/L (136-145)
[2025-06-21 14:06] LABS: Calcium 9.9 mg/dL (8.7-10.4)
--- NOTE | 2025-06-21 14:06 | DVH ---
COMPUTERIZED TOMOGRAPHY ABDOMEN AND PELVIS WITHOUT CONTRAST REASON FOR EXAM: ABD PAIN COMPARISON: CT CT AB PEL WO CON-NO ORAL OR IV on DOS: 04/20/23 TECHNIQUE: Spiral scans were acquired from the diaphragm to the symphysis pubis without intravenous c ontrast administration. 2-D coronal and sagittal reformatted images were provided. Radiation optimiza tion: All CT scans at this facility use at least one of these dose optimization techniques: Automated exposure control mA and/or kV adjustment per patient size (includes targeted exams where dose is mat ched to clinical indication) or iterative reconstruction. RADIATION DOSE: CTDI: 11 mGy DLP: 516 mGy-cm FINDINGS: The visualized lung bases are clear. There is no pleural effusion. There is no pericardial effusion. There is partial visualization of a right breast prosthesis. The spleen is not enlarged. The liver is borderline enlarged. Evaluation of the abdominal organs is suboptimal in the absence of intravenous contrast. The liver is diffusely hypoattenuating. No calcifi ed gallstone is identified. Unenhanced appearance of the pancreas is unremarkable. The adrenal glands are normal. The kidneys are similar in size. There is no hydronephrosis of either kidney. There is m ild prominence of the left renal pelvis. There is a 2 mm calculus within the distal left ureter at th e ureterovesical junction. The urinary bladder is grossly unremarkable. The uterus is absent. The ov asya are not definitely seen. There is no free fluid in the abdomen or pelvis. No pathologic lympha denopathy is identified by size criteria. There are few phleboliths in the pelvis. There is mild scat tered colonic diverticulosis without evidence of diverticulitis. The appendix is normal. There is no pathologic distention of the small bowel. There is no abdominal aortic aneurysm. No acute osseous ab normality is identified. IMPRESSION: There is a 2 mm calculus within the distal left ureter at the ureterovesical junction. There is mild prominence of the left renal pelvis without princess hydronephrosis. Normal appendix
[2025-06-21 14:11] LABS: BUN/Creatinine Ratio 10.8 (10.0-20.0); Blood Urea Nitrogen 11 mg/dL (9-23)
[2025-06-21 14:13] LABS: Glucose 147 mg/dL (74-106)
[2025-06-21] MEDS: HYDROmorphone HCL 2 MG/ML VL/or syr IV ONE (14:16)
[2025-06-21 14:19] LABS: Lactic Acid w/Reflex 2.7 mmol/L (0.4-2.0)
[2025-06-21] MEDS: KETOROLAC TROMETH 30 MG/ML 1ML VIAL IV ONE ×2 (14:47→21:30)
[2025-06-21 18:16] LABS: Urine Protein, UAD Negative (Negative)
[2025-06-21] MEDS ORDERED: MORPHINE SULFATE INJ 2 MG/ml SYRG IV PRN ×2 (19:15→21:45)
[2025-06-21] MEDS ORDERED: ONDANSETRON HCL 4 MG/2 ML VIAL IV PRN (19:15)
[2025-06-21] MEDS ORDERED: DEXTROSE (50%) 50ML SYRG IV PRN (19:15)
[2025-06-21] MEDS ORDERED: DOCUSATE SOD 100 MG CAP PO PRN (19:15)
[2025-06-21 19:47] VITALS: PULSE 76; RESP 20; O2SAT 100
[2025-06-21] MEDS: SODIUM CHLORIDE 0.9% 1,000 ML IV SCH (20:00)
[2025-06-21] MEDS: PANTOPRAZOLE 40 MG/10 ML VIAL INJ IV ONE ×3 (20:45→21:19)
--- NOTE | 2025-06-21 21:40 | DVHHP2 ---
History of Present Illness Reason for Visit: Acute abdominal pain History of Present Illness The patient is a 55 years old female who denies past medical history presented to [facility] ED with complaint of left lower quadrant abdominal pain. Patient reports he has been experiencing abdominal pain that radiates to the left flank and his back. Patient was seen and evaluated in the ED, laboratory data shows WBC 8.9, platelets 388, sodium 139, potassium 4.0, BUN 11, creatinine 1.02, glucose 147, calcium 9.9, lactic acid 2.7 trending down to 1.1, blood pressure 183/100 trending down to 158/90, heart rate 70, temperature 98.4 F, O2 saturation 99% on room air. Abdomen/pelvis CT revealing 2 mm calculus within the distal left ureter at the ureterovesical junction; there is mild prominence of the left renal pelvis without princess hydronephrosis. On my assessment, patient denied chest pain, no headache, no dizziness, no shortness of breaths, no diarrhea, no nausea, no vomiting, no fever, no chills. Patient was admitted for further evaluation and medical management. Past Medical History Denies past medical history Past Surgical History Hysterectomy (Partial), Tummy Tuck Family History Reviewed, noncontributory to the management of this case. Past Social History The patient lives at home, denies smoking, alcohol or illicit drugs abuse. Review of Systems Constitutional: No: Fever, Chills, Sweats, Weakness, Malaise, Other Eyes: No: Pain, Vision change, Conjunctivae inflammation, Eyelid inflammation, Other, Redness ENT: No: Ear pain, Ear discharge, Nose pain, Nose discharge, Nose congestion, Mouth pain, Mouth swelling, Throat pain, Throat swelling, Other Respiratory: No: Cough, Dry, Shortness of breath, SOB with excertion, Wheezing, Hemoptysis, Pleuritic Pain, Sputum, Wheezing, Other Cardiovascular: No: Chest Pain, Palpitations, Orthopnea, Paroxysmal Noc. Dyspnea, Edema, Lt Headedness, Other Gastrointestinal: Abdominal Pain; No: Nausea, Vomiting, Diarrhea, Constipation, Melena, Hematochezia, Other Genitourinary: No Dysuria, No Frequency, No Incontinence, No Hematuria, No Retention; Other (Flank pain) Musculoskeletal: back pain; No: other, neck pain, shoulder pain, arm pain, hand pain, leg pain, foot pain Skin: No: Rash, Lesions, Jaundice, Bruising, Other Neurological: No: Weakness, Numbness, Incoordination, Change in speech, Confusion, Seizures, Other Allergies: Coded Allergies: NO KNOWN ALLERGIES (Unverified , 04/20/23) Medications Current Medications Medications Dose Ordered Sig/Sofía Route Start Time Stop Time Status Last Admin Dose Admin Citalopram Hydrobromide 20 mg DAILY PO 06/22/25 10:00 Quetiapine Fumarate 100 mg HS PO 06/21/25 22:00 Pantoprazole Sodium 40 mg DAILY IV 06/22/25 10:00 Gabapentin 300 mg BID PO 06/21/25 22:00 Diagnostic Test (Pha) 1 strip ACHS 06/21/25 22:00 Insulin Human Regular ACHS SC 06/21/25 22:00 Dextrose 50 ml UD PRN IV 06/21/25 19:15 Sodium Chloride 1,000 ml @ 60 mls/hr [id number] IV 06/21/25 19:15 06/21/25 20:00 60 MLS/HR Acetaminophen/ Hydrocodone Bitart 1 tab Q4HP PRN PO 06/21/25 19:15 Ondansetron HCl 4 mg Q4HP PRN IV 06/21/25 19:15 Docusate Sodium 100 mg BIDPRN PRN PO 06/21/25 19:15 Acetaminophen 650 mg Q6HP PRN PO 06/21/25 19:15 Morphine Sulfate 2 mg Q4HPRN PRN IV 06/21/25 19:15 Acetaminophen/ Hydrocodone Bitart 1 tab Q8HPRN PRN PO 06/21/25 20:45 Exam Vital Signs Vital Signs Date Time Temp Pulse Resp B/P (MAP) Pulse Ox O2 Delivery O2 Flow Rate FiO2 06/21/25 19:47 76 20 100 Nasal Cannula* 4 36 06/21/25 19:47 98.3 162/84 (110) 98.3 General Appearance: Alert, Oriented X3, Cooperative, No acute distress HEENT: Atraumatic, PERRLA, EOMI, Mucous membr. moist/pink Respiratory: Normal air movement Cardiovascular: Regular rate, Normal S1, Normal S2, No murmurs Abdominal: Normal bowel sounds, Soft, No tenderness, No hepatospenomegaly, No masses Extremities: No clubbing, No cyanosis, No edema, Normal pulses, No tenderness/swelling Skin: No rashes, No significant lesion Neuro: Normal speech, Normal tone, Sensation intact, Cranial nerves 3-12 NL, Reflexes 2+, Other (Generalized weakness) Psych/Mental Status: Mental status NL, Mood NL Labs/Xrays Labs Test 06/21/25 17:12 06/21/25 15:31 06/21/25 13:45 Range/Units Urine Color Light-yellow Yellow Urine Clarity Clear Clear Urine pH 5.5 5.0-9.0 Urine Specific Adams 1.018 1.001-1.035 Urine Protein Negative Negative Urine Ketones Trace Negative Urine Blood Negative Negative /uL Urine Nitrite Negative Negative Urine Bilirubin Negative Negative Urine Urobilinogen Normal Negative mg/dL Urine Leukocyte Esterase Negative Negative /uL Urine RBC 1 0 - 4 /hpf Urine Microscopic WBC 1 0-5 /HPF Urine Squamous Epithelial Cells Few <5 /hpf Urine Bacteria Few H None Seen /hpf Urine Mucus Few None Seen Urine Glucose Normal Normal mg/dL Lactic Acid Level 1.1 0.4-2.0 mmol/L White Blood Count 8.9 4.4-10.8 10^3/uL Red Blood Count 4.71 4.0-5.20 10^6/uL Hemoglobin 13.2 12.2-16.2 g/dL Hematocrit 39.3 36.0-46.0 % Mean Corpuscular Volume 83.5 80.0-100.0 fL Mean Corpuscular Hemoglobin 28.0 28.0-32.0 pg Mean Corpuscular Hemoglobin Concent 33.5 32.0-36.0 g/dL Red Cell Distribution Width 14.0 11.8-14.3 % Platelet Count 388 140-450 10^3/uL Mean Platelet Volume 8.1 6.9-10.8 fL Neutrophils (%) (Auto) 44.1 37.0-80.0 % Lymphocytes (%) (Auto) 49.0 10.0-50.0 % Monocytes (%) (Auto) 5.6 0.0-12.0 % Eosinophils (%) (Auto) 0.9 0.0-7.0 % Basophils (%) (Auto) 0.4 0.0-2.0 % Neutrophils # (Auto) 3.9 1.6-8.6 10 ^3/uL Lymphocytes # (Auto) 4.3 0.4-5.4 10 ^3/uL Monocytes # (Auto) 0.5 0-1.3 10 ^3/uL Eosinophils # (Auto) 0.1 0-0.8 10 ^3/uL Basophils # (Auto) 0 0-0.2 10 ^3/uL Nucleated Red Blood Cells 0.0 % Sodium Level 139 136-145 mmol/L Potassium Level 4.0 3.5-5.1 mmol/L Chloride Level 105 98-107 mmol/L Carbon Dioxide Level 21 20-31 mmol/L Anion Gap 13 5-15 Blood Urea Nitrogen 11 9-23 mg/dL Creatinine 1.02 0.550-1.02 mg/dL Glomerular Filtration Rate Calc 65 >90 mL/min BUN/Creatinine Ratio 10.8 10.0-20.0 Serum Glucose 147 H 74-106 mg/dL Calcium Level 9.9 8.7-10.4 mg/dL PATIENT: JUDE ZULETA ACCT: [id number] UNIT: [id number] : 1970 LOC: ER ROOM / BED: / AGE / SEX: 55 / F ADM STATUS: REG ER SERVICE [id number] ORDERING PHYSICIAN: ELENO JOSE MD PROCEDURE(s): ABPL - CT AB PEL WO CON-NO ORAL OR IV REASON: ABD PAIN ORDER NUMBER(s): [id number], ACCESSION NUMBER(s): [id number] COMPUTERIZED TOMOGRAPHY ABDOMEN AND PELVIS WITHOUT CONTRAST REASON FOR EXAM: ABD PAIN COMPARISON: CT CT AB PEL WO CON-NO ORAL OR IV on DOS: 04/20/23 TECHNIQUE: Spiral scans were acquired from the diaphragm to the symphysis pubis without intravenous contrast administration. 2-D coronal and sagittal reformatted images were provided. Radiation optimization: All CT scans at this facility use at least one of these dose optimization techniques: Automated exposure control mA and/or kV adjustment per patient size (includes targeted exams where dose is matched to clinical indication) or iterative reconstruction. RADIATION DOSE: CTDI: 11 mGy DLP: 516 mGy-cm FINDINGS: The visualized lung bases are clear. There is no pleural effusion. There is no pericardial effusion. There is partial visualization of a right breast prosthesis. The spleen is not enlarged. The liver is borderline enlarged. Evaluation of the abdominal organs is suboptimal in the absence of intravenous contrast. The liver is diffusely hypoattenuating. No calcified gallstone is identified. Unenhanced appearance of the pancreas is unremarkable. The adrenal glands are normal. The kidneys are similar in size. There is no hydronephrosis of either kidney. There is mild prominence of the left renal pelvis. There is a 2 mm calculus within the distal left ureter at the ureterovesical junction. The urinary bladder is grossly unremarkable. The uterus is absent. The ovaries are not definitely seen. There is no free fluid in the abdomen or pelvis. No pathologic lymphadenopathy is identified by size criteria. There are few phleboliths in the pelvis. There is mild scattered colonic diverticulosis without evidence of diverticulitis. The appendix is normal. There is no pathologic distention of the small bowel. There is no abdominal aortic aneurysm. No acute osseous abnormality is identified. IMPRESSION: There is a 2 mm calculus within the distal left ureter at the ureterovesical junction. There is mild prominence of the left renal pelvis without princess hydronephrosis. Normal appendix ORDERING PHYSICIAN: ELENO JOSE MD PROCEDURE(s): CXRP - CHEST PORTABLE REASON: ABD PAIN ORDER NUMBER(s): [id number], ACCESSION NUMBER(s): [id number] EXAM: XY CHEST PORTABLE HISTORY: ABD PAIN TECHNIQUE: 1 view of the chest COMPARISON: None FINDINGS/IMPRESSION: LUNGS: No pleural effusion, consolidation, or pneumothorax MEDIASTINUM: Unremarkable BONES: No acute osseous abnormality OTHER: None SEPSIS Sepsis Screen Date sepsis recognized/suspect: Jun 21, 2025 Time Sepsis recognized/suspect: 1951 Recent Procedure: No On Antibiotic Therapy: No Respiratory Rate >20: No Heart Rate >90: No Temp<36 C (96.8 F) or >38.3 C: No SBP <90 or MAP <65 mmHG: No New Acute Mental Status Change: No Is the patient on CPAP, BIPAP,: No Physician Orders Citalopram Tablet (Celexa Tablet) (06/22/25 10:00) Quetiapine Fumarate Tablet (Seroquel Tab (06/21/25 22:00) Consistent Carb(Ccho)Diabetes (06/22/25 Breakfast) Pantoprazole (Protonix) (06/22/25 10:00) Gabapentin Capsule (Neurontin Capsule) (06/21/25 22:00) Glucose Blood (Accu-Chek Comfort Curve T (06/21/25 22:00) Insulin R (Human) (Insulin R) (06/21/25 22:00) Dextrose 50% Syringe (06/21/25 19:15) Allergies (06/21/25 19:07) Code Status (06/21/25 19:07) Sodium Chloride 0.9% (06/21/25 19:15) Oxygen Per Hour (06/21/25 19:07) Hydrocodone-Acet 5/325mg Tab (Olancha 5/32 (06/21/25 19:15) Ondansetron Hcl (Zofran) (06/21/25 19:15) Docusate Sodium Capsule (Colace Capsule) (06/21/25 19:15) Complete Blood Count (06/22/25 04:00) Comprehensive Metabolic Panel (06/22/25 04:00) Condition: Serious (06/21/25 19:07) Acetaminophen Tablet (Tylenol Tablet) (06/21/25 19:15) Bedrest With Bathroom Privileg (06/21/25 19:07) Morphine Sulfate Injection (06/21/25 19:15) Sequential Compression Device (06/21/25 ) Hydrocodone-Acet 10/325mg Tab (Olancha 10/ (06/21/25 20:45) * Urology Consult (06/21/25 21:21) Vital Signs Date Time Temp Pulse Resp B/P (MAP) Pulse Ox O2 Delivery O2 Flow Rate FiO2 06/21/25 19:47 76 20 100 Nasal Cannula* 4 36 06/21/25 19:47 98.3 76 20 162/84 (110) 100 98.3 06/21/25 16:00 68 12 158/90 (112) 99 06/21/25 15:45 70 13 169/91 06/21/25 14:16 82 22 183/100 06/21/25 14:00 72 20 176/100 06/21/25 13:43 98.4 79 22 183/100 (127) 98 98.4 Laboratory Tests Test 06/21/25 13:45 06/21/25 15:31 Lactic Acid Level 2.7 mmol/L (0.4-2.0) *H 1.1 mmol/L (0.4-2.0) White Blood Count 8.9 10^3/uL (4.4-10.8) Medications Medications Dose Ordered Sig/Sofía Route Start Time Stop Time Status Last Admin Dose Admin Hydromorphone HCl 1 mg ONCE ONCE IV 06/21/25 14:15 06/21/25 14:16 DC 06/21/25 14:16 1 MG Ketorolac Tromethamine 30 mg ONCE ONCE IV 06/21/25 14:45 06/21/25 14:46 DC 06/21/25 14:47 30 MG Morphine Sulfate 4 mg ONCE ONCE IV 06/21/25 13:30 06/21/25 13:31 DC 06/21/25 13:27 4 MG Ondansetron HCl 4 mg ONCE ONCE IV 06/21/25 13:30 06/21/25 13:31 DC 06/21/25 13:28 4 MG Pantoprazole Sodium 40 mg ONCE ONCE IV 06/21/25 19:15 06/21/25 19:26 DC 06/21/25 21:15 40 MG Sodium Chloride 1,000 ml @ 60 mls/hr [id number] IV 06/21/25 19:15 06/21/25 20:00 60 MLS/HR Sodium Chloride 1,000 ml @ 150 mls/hr Q6H40M ONCE IV 06/21/25 13:30 06/21/25 20:09 DC 06/21/25 15:30 150 MLS/HR Sodium Chloride 1,000 ml @ 1,000 mls/hr Q1H ONCE IV 06/21/25 13:30 06/21/25 14:29 DC 06/21/25 13:43 1,000 MLS/HR Assessment/Plan Assessment/Plan Acute abdominal pain Kidney stones Hyperglycemia Hypertensive urgency Plan 1. Admit to med surge unit 2. Breathing treatment 3. Pain control management 4. Management of fluids and electrolytes 5. Consultation for hospitalist 6. Diagnostic tests abdomen/pelvis CT 7. DVT prophylaxis on SCDs 8. Repeat labs CBC, CMP in a.m. 9. Continue with current medical management 10. Treatment plan discussed with patient and RN. Patient verbalized und erstanding. Plan discussed with: Patient, Other (RN) My Orders Orders - JOSH LAZCANO DNP Procedure Category Date Status Time Citalopram Tablet PHA 06/22/25 In Process (Celexa Tablet) 10:00 Quetiapine Fumarate PHA 06/21/25 In Process Tablet (Seroquel Tab 22:00 Consistent DIET 06/22/25 Transmitted Carb(Ccho)Diabetes Breakfast Pantoprazole PHA 06/22/25 In Process (Protonix) 10:00 Gabapentin Capsule PHA 06/21/25 In Process (Neurontin Capsule) 22:00 Glucose Blood PHA 06/21/25 In Process (Accu-Chek Comfort 22:00 Insulin R (Human) PHA 06/21/25 In Process (Insulin R) 22:00 Dextrose 50% Syringe PHA 06/21/25 In Process 19:15 Allergies KEKE 06/21/25 In Process 19:07 Code Status CODE 06/21/25 Transmitted 19:07 Sodium Chloride 0.9% PHA 06/21/25 In Process 19:15 Oxygen Per Hour RT 06/21/25 Transmitted 19:07 Hydrocodone-Acet PHA 06/21/25 In Process 5/325mg Tab (Olancha 19:15 Ondansetron Hcl PHA 06/21/25 In Process (Zofran) 19:15 Docusate Sodium PHA 06/21/25 In Process Capsule (Colace 19:15 Complete Blood Count LAB 06/22/25 Verified 04:00 Comprehensive LAB 06/22/25 Verified Metabolic Panel 04:00 Condition: Serious KEKE 06/21/25 In Process 19:07 Acetaminophen Tablet PHA 06/21/25 In Process (Tylenol Tablet) 19:15 Bedrest With Bathroom KEKE 06/21/25 In Process Privileg 19:07 Morphine Sulfate PHA 06/21/25 In Process Injection 19:15 Sequential KEKE 06/21/25 In Process Compression Device * Urology Consult CONS 06/21/25 Transmitted 21:21 Problem List: (1) Acute abdominal pain (2) Kidney stones (3) Hyperglycemia (4) Hypertensive urgency Date of Service: Jun 21, 2025 Billing Provider: JOSH LAZCANO DNP Common Visit Codes: [id number] INP/OBS CARE (HIGH) JOSH LAZCANO DNP Jun 21, 2025 21:40
[2025-06-21] MEDS ORDERED: NITROGLYCERIN 0.4 MG SL TAB SL PRN (21:45)
[2025-06-21] MEDS: ACCU-CHEK COMFORT CURVE STRIP VI SCH (21:52)
[2025-06-21] MEDS: InsuLIN REG 1unit/0.01ml Soln (100units/ml) SC SCH (21:52)
[2025-06-21] MEDS: GABAPENTIN 300 MG CAP PO SCH (21:52)
[2025-06-21] MEDS: KETOROLAC TROMETH 30 MG/ML 1ML VIAL ONE (22:11)
[2025-06-21 23:20] VITALS: BP 137/88; PULSE 66; RESP 15; TEMP 97.8; O2SAT 100
[2025-06-22 05:00] VITALS: BP 127/84; PULSE 69; RESP 15; TEMP 98; O2SAT 100
[2025-06-22 05:44] LABS: Hematocrit 35.9 % (36.0-46.0); Hemoglobin 12.2 g/dL (12.2-16.2); Mean Corpuscular Hemoglobin 28.5 pg (28.0-32.0); Mean Corpuscular Volume 84.3 fL (80.0-100.0); Nucleated Red Blood Cells % 0.1 %
[2025-06-22 06:04] LABS: Albumin 4.0 g/dL (3.2-4.8); Alkaline Phosphatase 71 U/L (46-116); Anion Gap 10 (5-15); BUN/Creatinine Ratio 13.8 (10.0-20.0); Bilirubin, Total 0.7 mg/dL (0.2-1.0); Blood Urea Nitrogen 12 mg/dL (9-23); Calcium 8.7 mg/dL (8.7-10.4); Carbon Dioxide 24 mmol/L (20-31); Chloride 106 mmol/L (98-107); Glucose 88 mg/dL (74-106); Potassium 3.8 mmol/L (3.5-5.1); Sodium 140 mmol/L (136-145); Total Protein 6.6 g/dL (5.7-8.2)
[2025-06-22 06:10] LABS: Alanine Aminotransferase 45 U/L (7-40)
[2025-06-22] MEDS: HYDROcodone-ACET 10/325MG TAB PO PRN (06:21)
[2025-06-22] MEDS: PANTOPRAZOLE 40 MG/10 ML VIAL INJ IV SCH (08:13)
[2025-06-22] MEDS: CITALOPRAM HYDROBR 20 MG TAB PO SCH (08:13)
[2025-06-22 09:09] VITALS: BP 121/79; PULSE 70; RESP 20; TEMP 97.9; O2SAT 98
[2025-06-22] MEDS ORDERED: diphenhdrAMINE HCL 50 MG/1 ML VL ONE ×2 (10:24→13:59)
[2025-06-22] MEDS: diphenhdrAMINE HCL 50 MG/1 ML VL IV ONE (10:28)
[2025-06-22 12:58] VITALS: BP 133/82; PULSE 64; RESP 20; TEMP 98.2; O2SAT 100
[2025-06-22] MEDS: HYDROcodone-ACET 5/325MG TAB PO PRN (13:30)
[2025-06-22] MEDS ORDERED: GABA-1250 PO (13:31)
[2025-06-22] MEDS ORDERED: METO-289 PO (13:38)
[2025-06-22] MEDS ORDERED: LORA-622 PO (13:38)
[2025-06-22] MEDS ORDERED: BUSP10TA90 PO (13:38)
[2025-06-22] MEDS ORDERED: LOSA-534 PO (13:38)
[2025-06-22] MEDS ORDERED: CYCL-839 PO (13:38)
[2025-06-22] MEDS ORDERED: FAMO-12 PO (13:38)
[2025-06-22] MEDS ORDERED: HYDR-3682 PO (13:38)
[2025-06-22] MEDS: diphenhdrAMINE HCL 50 MG/1 ML VL IV PRN (14:13)
[2025-06-22 16:49] VITALS: BP 129/77; PULSE 67; RESP 20; TEMP 98.2; O2SAT 96
--- NOTE | 2025-06-22 17:29 | DVHPN2 ---
Subjective Patient doing better, pain is improved, nausea is improving,. Seen at bedside today. Reviewed: H&P Changes from previous H/P or p: No Changes General: Per HPI Eyes: No Pain, No Vision change, No Conjunctivae inflammation, No Eyelid inflammation, No Other, No Redness ENT: No Ear pain, No Ear discharge, No Nose pain, No Nose discharge, No Nose congestion, No Mouth pain, No Mouth swelling, No Throat pain, No Throat swelling, No Other Cardiovascular: No Chest Pain, No Palpitations, No Orthopnea, No Paroxysmal Noc. Dyspnea, No Edema, No Lt Headedness, No Other Respiratory: No Cough, No Dry, No Shortness of breath, No SOB with excertion, No Wheezing, No Hemoptysis, No Pleuritic Pain, No Sputum, No Other Gastrointestinal: No Nausea, No Vomiting; Abdominal Pain; No Diarrhea, No Constipation, No Melena, No Hematochezia, No Other Genitourinary: No Dysuria, No Frequency, No Incontinence, No Hematuria, No Retention; Other (Flank pain) Musculoskeletal: No other, No neck pain, No shoulder pain, No arm pain; back pain; No hand pain, No leg pain, No foot pain Skin: No Rash, No Lesions, No Jaundice, No Bruising, No Other Objective Vitals Vital Signs Date Time Temp Pulse Resp B/P (MAP) Pulse Ox O2 Delivery O2 Flow Rate FiO2 06/22/25 16:49 98.2 67 20 129/77 (94) 96 98.2 06/22/25 07:30 Room Air* 0 21 Intake/Output Intake and Output 06/22/25 07:00 Intake Total 1475 ml Output Total 600 ml Balance 875 ml Intake Oral 905 ml IV Total 570 ml Output Urine Total 600 ml Exam General Appearance: Alert, Oriented X3, Cooperative, No acute distress HEENT: Atraumatic, PERRLA, EOMI, Mucous membr. moist/pink Respiratory: Normal air movement Cardiovascular: Regular rate, Normal S1, Normal S2, No murmurs Abdominal: Normal bowel sounds, Soft, No tenderness, No hepatospenomegaly, No masses Extremities: No clubbing, No cyanosis, No edema, Normal pulses, No tenderness/swelling Skin: No rashes, No significant lesion Neuro: Normal speech, Normal tone, Sensation intact, Cranial nerves 3-12 NL, Reflexes 2+, Other (Generalized weakness) Psych/Mental Status: Mental status NL, Mood NL Medications Current Medications Medications Dose Ordered Sig/Sofía Route Start Time Stop Time Status Last Admin Dose Admin Citalopram Hydrobromide 20 mg DAILY PO 06/22/25 10:00 06/22/25 08:13 20 MG Quetiapine Fumarate 100 mg HS PO 06/21/25 22:00 Pantoprazole Sodium 40 mg DAILY IV 06/22/25 10:00 06/22/25 08:13 40 MG Gabapentin 300 mg BID PO 06/21/25 22:00 06/22/25 08:13 300 MG Diagnostic Test (Pha) 1 strip ACHS 06/21/25 22:00 06/22/25 16:56 1 STRIP Insulin Human Regular ACHS SC 06/21/25 22:00 Dextrose 50 ml UD PRN IV 06/21/25 19:15 Sodium Chloride 1,000 ml @ 60 mls/hr [id number] IV 06/21/25 19:15 06/22/25 11:33 60 MLS/HR Ondansetron HCl 4 mg Q4HP PRN IV 06/21/25 19:15 Docusate Sodium 100 mg BIDPRN PRN PO 06/21/25 19:15 Acetaminophen 650 mg Q6HP PRN PO 06/21/25 19:15 Morphine Sulfate 2 mg Q4HPRN PRN IV 06/21/25 19:15 Hold Nitroglycerin 0.4 mg Q5MINP PRN SL 06/21/25 21:45 Morphine Sulfate 2 mg Q30M PRN IV 06/21/25 21:45 Hold Diphenhydramine HCl 25 mg Q4HP PRN IV 06/22/25 14:00 06/22/25 14:13 25 MG Laboratory Results Laboratory Tests 06/22/25 05:16 Chemistry Test 06/22/25 05:16 Albumin 4.0 g/dL (3.2-4.8) Calcium Level 8.7 mg/dL (8.7-10.4) Total Protein 6.6 g/dL (5.7-8.2) LFT Test 06/22/25 05:16 Alanine Aminotransferase (ALT) 45 U/L (7-40) H Alkaline Phosphatase 71 U/L (46-116) Aspartate Amino Transferase (AST) 40 U/L (13-40) Total Bilirubin 0.7 mg/dL (0.2-1.0) Urinalysis Test 06/21/25 17:12 Urine Color Light-yellow (Yellow) Urine Clarity Clear (Clear) Urine pH 5.5 (5.0-9.0) Urine Specific [place]oun 1.018 (1.001-1.035) Urine Protein Negative (Negative) Urine Ketones Trace (Negative) Urine Blood Negative /uL (Negative) Urine Nitrite Negative (Negative) Urine Bilirubin Negative (Negative) Urine Urobilinogen Normal mg/dL (Negative) Urine Leukocyte Esterase Negative /uL (Negative) Urine RBC 1 /hpf (0 - 4) Urine Microscopic WBC 1 /HPF (0-5) Urine Squamous Epithelial Cells Few /hpf (<5) Urine Bacteria Few /hpf (None Seen) H Urine Mucus Few (None Seen) Urine Glucose Normal mg/dL (Normal) Labs and/or images reviewed: Labs reviewed by me, Image(s) reviewed by me Assessment/Plan Assessment/Plan The patient is a 55 years old female who denies past medical history presented to [facility] ED with complaint of left lower quadrant abdominal pain. Patient reports he has been experiencing abdominal pain that radiates to the left flank and his back. 06/22: Patient is improved pain continue prn analgesia, continue prn antiemetic,. Patient complaining of epigastric pain takes antacid at home, we will continue. Start IV antibiotics as symptoms can mimic gastroenteritis, continue normal saline IV fluids. Diagnosis : Left nephrolithiasis, complicated with p.o. intolerance Acute gastroenteritis, infectious etiology likely P.o. intolerance Intractable flank pain Intractable nausea Lactic acidosis Gastritis History of hysterectomy Plan: IV fluids Antiemetics prn Analgesia prn Protonix IV antibiotics Med surge Full code Plan discussed with: Patient My Orders Orders - HANNAH BELLE MD Procedure Category Date Status Time Diphenhdramine PHA 06/22/25 In Process Injection (Benadryl 14:00 Communication Order ORDERS 06/22/25 Transmitted 15:28 Date of Service: Jun 22, 2025 Billing Provider: HANNAH BELLE MD Common Visit Codes: [id number] INP/OBS CARE(HIGH) HANNAH BELLE MD Jun 22, 2025 17:29
[2025-06-22] MEDS: ACETAMINOPHEN 325 MG TAB PO PRN (18:44)
[2025-06-22 20:00] VITALS: PULSE 68; RESP 16; O2SAT 96
[2025-06-22 20:43] VITALS: BP 119/73; PULSE 68; RESP 16; TEMP 97.9; O2SAT 96
[2025-06-22] MEDS ORDERED: metroNIDAZOLE 500MG/100ML 200 ML IV ONE (22:06)
[2025-06-22] MEDS: KETOROLAC TROMETH 30 MG/ML 1ML VIAL IV PRN (22:26)
[2025-06-23] VITALS (7 sets, daily range): BP systolic 118–150; BP diastolic 62–98; PULSE 69–71; RESP 14–16; TEMP 36.7; O2SAT 94–99
[2025-06-23 07:24] LABS: Albumin 3.7 g/dL (3.2-4.8); Alkaline Phosphatase 62 U/L (46-116); Anion Gap 9 (5-15); Bilirubin, Total 0.4 mg/dL (0.2-1.0); Carbon Dioxide 27 mmol/L (20-31); Glucose 79 mg/dL (74-106); Potassium 4.1 mmol/L (3.5-5.1); Total Protein 6.0 g/dL (5.7-8.2)
[2025-06-23 07:27] LABS: Alanine Aminotransferase 41 U/L (7-40); BUN/Creatinine Ratio 6.6 (10.0-20.0); Blood Urea Nitrogen < 5 mg/dL (9-23); Calcium 8.3 mg/dL (8.7-10.4); Chloride 109 mmol/L (98-107); Sodium 145 mmol/L (136-145)
[2025-06-23 07:28] LABS: Hematocrit 33.7 % (36.0-46.0); Hemoglobin 11.3 g/dL (12.2-16.2); Mean Corpuscular Hemoglobin 28.2 pg (28.0-32.0); Mean Corpuscular Volume 84.4 fL (80.0-100.0)
[2025-06-23 10:06] LABS: Total Cells Counted 100.0 (100)
[2025-06-23 10:25] LABS: Hepatitis B Surface Antigen Negative (Negative)
[2025-06-23 11:12] LABS: Hepatitis C Antibody Negative (Negative)
--- NOTE | 2025-06-23 11:58 | DVHDS2 ---
Discharge Summary Date of Admission Jun 21, 2025 at 21:39 Date of Discharge: Jun 23, 2025 Labs/Diagnostic Data: Laboratory Results Test 06/23/25 06:07 06/22/25 05:16 06/21/25 17:12 06/21/25 15:31 White Blood Count 4.8 10^3/uL (4.4-10.8) Red Blood Count 3.99 10^6/uL (4.0-5.20) Hemoglobin 11.3 g/dL (12.2-16.2) Hematocrit 33.7 % (36.0-46.0) Mean Corpuscular Volume 84.4 fL (80.0-100.0) Mean Corpuscular Hemoglobin 28.2 pg (28.0-32.0) Mean Corpuscular Hemoglobin Concent 33.4 g/dL (32.0-36.0) Red Cell Distribution Width 14.3 % (11.8-14.3) Platelet Count 293 10^3/uL (140-450) Mean Platelet Volume 8.5 fL (6.9-10.8) Neutrophils (%) (Auto) % (37.0-80.0) Lymphocytes (%) (Auto) % (10.0-50.0) Monocytes (%) (Auto) % (0.0-12.0) Basophils (%) (Auto) % (0.0-2.0) Neutrophils # (Auto) 10 ^3/uL (1.6-8.6) Lymphocytes # (Auto) 10 ^3/uL (0.4-5.4) Monocytes # (Auto) 10 ^3/uL (0-1.3) Differential Total Cells Counted 100.0 (100) Neutrophils % (Manual) 25 (37.0-80.0) Band Neutrophils % (Manual) 0 Lymphocytes % (Manual) 67 (10.0-50.0) Monocytes % (Manual) 5 (0-12) Eosinophils % (Manual) 3 (0-7) Basophils % (Manual) 0 (0.0-2.0) Metamyelocytes % (manual) 0 Myelocytes % (Manual) 0 Promyelocytes % (Manual) 0 Blast Cells % (Manual) 0 Reactive Lymphocytes 0 Platelet Estimate Adequate Sodium Level 145 mmol/L (136-145) Potassium Level 4.1 mmol/L (3.5-5.1) Chloride Level 109 mmol/L (98-107) Carbon Dioxide Level 27 mmol/L (20-31) Anion Gap 9 (5-15) Blood Urea Nitrogen < 5 mg/dL (9-23) Creatinine 0.76 mg/dL (0.550-1.02) Glomerular Filtration Rate Calc 92 mL/min (>90) BUN/Creatinine Ratio 6.6 (10.0-20.0) Serum Glucose 79 mg/dL (74-106) POC Glucose 84 mg/dl (70-106) Calcium Level 8.3 mg/dL (8.7-10.4) Total Bilirubin 0.4 mg/dL (0.2-1.0) Aspartate Amino Transferase (AST) 42 U/L (13-40) Alanine Aminotransferase (ALT) 41 U/L (7-40) Alkaline Phosphatase 62 U/L (46-116) Total Protein 6.0 g/dL (5.7-8.2) Albumin 3.7 g/dL (3.2-4.8) Eosinophils (%) (Auto) 1.0 % (0.0-7.0) Eosinophils # (Auto) 0.1 10 ^3/uL (0-0.8) Basophils # (Auto) 0 10 ^3/uL (0-0.2) Nucleated Red Blood Cells 0.1 % Hepatitis B Surface Antigen Negative (Negative) Hepatitis C Antibody Negative (Negative) Urine Color Light-yellow (Yellow) Urine Clarity Clear (Clear) Urine pH 5.5 (5.0-9.0) Urine Specific [place] 1.018 (1.001-1.035) Urine Protein Negative (Negative) Urine Ketones Trace (Negative) Urine Blood Negative /uL (Negative) Urine Nitrite Negative (Negative) Urine Bilirubin Negative (Negative) Urine Urobilinogen Normal mg/dL (Negative) Urine Leukocyte Esterase Negative /uL (Negative) Urine RBC 1 /hpf (0 - 4) Urine Microscopic WBC 1 /HPF (0-5) Urine Squamous Epithelial Cells Few /hpf (<5) Urine Bacteria Few /hpf (None Seen) Urine Mucus Few (None Seen) Urine Glucose Normal mg/dL (Normal) Lactic Acid Level 1.1 mmol/L (0.4-2.0) Other Laboratory Tests 06/23/25 06:07 Brief Hx & Hospital Course: The patient is a 55 years old female who denies past medical history presented to [facility] ED with complaint of left lower quadrant abdominal pain. Patient reports he has been experiencing abdominal pain that radiates to the left flank and his back. 06/22: Patient is improved pain continue prn analgesia, continue prn antiemetic,. Patient complaining of epigastric pain takes antacid at home, we will continue. Start IV antibiotics as symptoms can mimic gastroenteritis, continue normal saline IV fluids. 06/23: Patient is feeling improved, complaining of headache today. Still has a little bit of left lower quadrant/left flank pain some tenderness on palpation. Passing gas bowel movements slightly loose. Antibiotics are helping so we will continue. Patient tolerating p.o. pain controlled with p.o. vital signs stable. Patient is stable for discharge as per plan below. We will do Augmentin 875 b.i.d. 3 days, UA was negative, gastroenteritis still possible. For nephrolithiasis continue IV hydration, continue Flomax 0.4 mg daily 30 days,. No need for repeat ultrasound as there was no hydronephrosis in the initial CT. We will give Toradol 15 mg IV injection 1 time today, Compazine 10 mg IV injection today, steroid Solu-Medrol 20 mg IV shot 1 time today for headache migraines. Otherwise patient stable to follow up with PCP and primary neurologist. Diagnosis : Left nephrolithiasis, complicated with p.o. intolerance Acute gastroenteritis, infectious etiology likely P.o. intolerance Intractable flank pain Intractable nausea Lactic acidosis Gastritis History of hysterectomy Plan: Augmentin 875 b.i.d. 3 days, For nephrolithiasis continue IV hydration, Baclofen 10 mg daily 7 days, can use extra tablets as needed up to 3 times daily continue Flomax 0.4 mg daily 30 days,. Continue other home medications not mentioned above follow up with PCP and primary neurologist. Condition at Discharge: Fair Final Diagnosis/Problems List Left nephrolithiasis, complicated with p.o. intolerance Acute gastroenteritis, infectious etiology likely P.o. intolerance Intractable flank pain Intractable nausea Lactic acidosis Gastritis History of hysterectomy Discharge Disposition: Home Discharge Instruct/Medications Scheduled Amoxicillin & Pot Clavulanate (Augmentin Tablet), 875 MG PO BID Buspirone Hcl (Buspirone Hcl), 7.5 MG PO BID, (Reported) Cetirizine Hcl (Cetirizine Hcl), 10 MG PO DAILY Famotidine (Famotidine), 20 MG PO BID, (Reported) Fluticasone Propionate (Nasal) (Flonase Allergy Relief), 50 MCG NA DAILY Gabapentin (Gabapentin), 300 MG PO TID, (Reported) Loratadine (Claritin), 1 TAB PO DAILY, (Reported) Losartan Potassium (Losartan Potassium), 50 MG PO BID, (Reported) Metformin Hydrochloride (Metformin Hcl), 1 TAB PO BID Metoprolol Succinate (Metoprolol Succinate Er), 50 MG PO BID, (Reported) Oxymetazoline Hcl (Afrin 12 Hour), 1 SPRAY NA BID Prazosin Hcl (Minipres), 1 MG PO HS, (Reported) Sodium Chloride-Sodium Bicarbo (Neti Pot Kit Sinus Wash/C 2300-700 mg), 1 KIT NA UD Scheduled PRN Albuterol Sulfate (Albuterol Sulfate Hfa), 108 MCG IN Q6HPRN PRN Cyclobenzaprine Hcl (Cyclobenzaprine Hcl), 10 MG PO TID PRN for FOR MUSCLE SPASM, (Reported) Hydroxyzine Hcl (Hydroxyzine Hcl), 25 MG PO QID PRN for ANXIETY, (Reported) Miscellaneous Medications Semaglutide (Ozempic), 0.25 MG SC, (Reported) Discontinued Medications Aripiprazole (Aripiprazole), 5 MG PO HS, (Reported) Buspirone Hcl (Buspirone Hcl), 5 MG PO Q12HR, (Reported) Escitalopram Oxalate (Lexapro), 1 TAB PO DAILY, (Reported) Gabapentin (Gabapentin), 300 MG PO BID, (Reported) Hydroxyzine Hcl (Hydroxyzine Hcl), 10 MG PO QIDPRN PRN for ANXIETY, (Reported) Linaclotide Base (Linzess), 145 MCG OR UD, (Reported) Trazodone HCl (Trazodone Hydrocloride), 200 MG PO HS, (Reported) Discharge Statement: "Patient was advised to return to the ER or call 911 if any headaches, dizziness, shortness of breath, chest pain, abdominal pain, bleeding, fevers, or worsening of medical condition. Patient was counseled about treatment plan, medications, possible side effects, patientverbalized understanding. All questions were answered to the best of my ability. This discharge took greater then 30 minutes in planning, reviewing documentation, counseling the patient, and discussing with other team members." ASSESSMENT ASSESSMENT Assessment Date of Service: Jun 23, 2025 Billing Provider: HANNAH BELLE MD Common Visit Codes: 10507-LFS/OBS DISCH DAY >30min HANNAH BELLE MD Jun 23, 2025 11:58
[2025-06-23] MEDS ORDERED: BACL10TA PO (14:46)
[2025-06-23] MEDS ORDERED: AUG875T PO (14:46)
[2025-06-23] MEDS ORDERED: TAMS0.4C39 PO (14:46)
[2025-06-23] MEDS ORDERED: methylPREDNISolone SOD SUCC 40 MG/ML VL ONE (15:51)
[2025-06-23] MEDS: methylPREDNISolone SOD SUCC 40 MG/ML VL IV ONE (16:04)
[2025-06-23] MEDS: PROCHLORPERAZINE EDISYLATE 5 MG/ML 2ML VIAL IV ONE (16:04)
[2025-06-23] MEDS: KETOROLAC TROMETH 30 MG/ML 1ML VIAL IV ONE (16:05)
== END 2025-06-23 18:40 | disposition home or self-care (01) | DRG 249 ==
LOC: ER 12:50 → OVERFLOW 21:39 → EAST 23:05
PROVIDERS: ADMIT Student in an Organized Health Care Education/Training Program; ATTEND Student in an Organized Health Care Education/Training Program
DX: A09 Infectious gastroenteritis and colitis, unspecified (principal); E87.20 Acidosis, unspecified; I16.0 Hypertensive urgency; K29.70 Gastritis, unspecified, without bleeding; R73.9 Hyperglycemia, unspecified; N20.0 Calculus of kidney; Z90.711 Acquired absence of uterus with remaining cervical stump; Z79.899 Other long term (current) drug therapy
CPT/HCPCS: 36415; 71045; 74176; 80048; 80053; 81001; 82962; 83605; 85007; 85025; 85027; 86803; 87340; 96365; 96375; G0378; J1885; J2405; J2470; J3490